=== PATIENT | male | born 1990 | race Caucasian/White ===

== ENCOUNTER → 2021-01-09 | Outpatient (CLI) | payer BC ==
[~2021-01-09] MED LIST: IOHEXOL 240 MG/ML 50ML VIAL. ONE; IOHEXOL 240 MG/ML 50ML VIAL. PO ONE; IOHEXOL 300 MG/ML 75 ML VIAL. IV ONE
--- NOTE | 2021-01-09 15:37 | RAD ---
CT ABDOMEN+PELVIS W History: Reason: LT FLANK PAIN, LLQ ABD PAIN LOWER, BLOOD IN STOOL X 3 MONTHS Technique: After the administration of intravenous contrast, CT imaging was performed of the abdomen and pelvis. Multiplanar images are reviewed. Exposure: One or more of the following individualized dose reduction techniques were utilized for thi s examination: 1. Automated exposure control 2. Adjustment of the mA and/or kV according to patient size 3. Use of iterative reconstruction technique. Comparison: None Findings: Lower chest: No consolidation or pleural effusion. Abdomen and pelvis: The liver, spleen, adrenal glands, pancreas and gallbladder are unremarkable. No biliary ductal dilatation. Patent portal veins. Normal appearance of the kidneys. No hydronephrosis. Decompressed urinary bladder. Focal distal gastric body wall thickening and collapse likely due to contraction. Mild sigmoid and rectal wall thickening. There is adjacent mesenteric hyperemia. Normal appendix. No evidence of bowel obstruction. Oral contrast opacifies the level of the rectum. No pathologic lymphad enopathy. No ascites. Bones: Right L5 spondylolysis. No anterolisthesis. Impression: 1. Sigmoid and rectal wall thickening, may represent infectious or inflammatory colitis. Electronically signed by: Abdirizak Beyer DO (01/09/2021 3:35 PM) [id number]
== END ==
LOC: CT 08:17
PROVIDERS: ATTEND Nurse Practitioner Family
DX: R10.32 Left lower quadrant pain (principal)
CPT/HCPCS: 74177; Q9967

== ENCOUNTER → 2021-12-31 | Outpatient (CLI) | payer BC ==
--- NOTE | 2021-12-31 16:10 | RAD ---
Exam Date: 12/31/2021 2:38 PM XR ABDOMEN 1V Indication: Reason: HEMATURIA / Spl. Instructions: / History: . FINDINGS/ IMPRESSION: No definite radiopaque urinary tract calculi are seen. There is a non-dilated, non-obstructed bowel gas pattern. Air and fecal matter are seen within the c olon. The visualized osseous structures are intact. Electronically signed by: Ildefonso Field MD (12/31/2021 4:07 PM) [facility]
== END ==
LOC: RAD 14:33
PROVIDERS: ATTEND Urology
DX: R14.3 Flatulence (principal); R31.9 Hematuria, unspecified
CPT/HCPCS: 74018